=== PATIENT | female | born 2000 | race Caucasian/White ===

== ENCOUNTER 2019-12-03 17:40 | Day surgery (SDC) | payer BC, OTHER ==
[2019-12-03 18:14] VITALS: BMI 29.6
[2019-12-03] MEDS ORDERED: hydrALAZINE 20 MG/ML VIAL SLOW IVP PRN (19:22)
--- NOTE | 2019-12-03 21:45 | PRG ---
DATE OF SERVICE: 12/03/2019 PRIMARY OB: Molly Becerra MD CHIEF COMPLAINT: Rash. HISTORY OF PRESENT ILLNESS: The patient is a 19-year-old G1, P0 female with an intrauterine at 38 weeks and 6 days, presenting to Labor and Delivery with a several-day history of worsening rash that she has tried at home Benadryl, oatmeal bath, [id number] topical steroids without benefit. She reports that the rash is very pruritic. She denies taking hot showers. She denies any contact with any new soaps, detergents, home remedies or prescriptions or new detergents. The patient denies fever, headache, chest pain, shortness of breath, nausea, vomiting, diarrhea, constipation, hip problems, knee problems, or muscle weakness. She denies vaginal bleeding, leakage of fluid, urinary urgency or frequency. PAST MEDICAL HISTORY: Thyroid disorder. MEDICATIONS: vitamins. ALLERGIES: AMOXICILLIN AND CODEINE. PAST SURGICAL HISTORY: Tonsillectomy. SOCIAL HISTORY: Denies drug, alcohol, or tobacco use. OB LABS: Unavailable at the time of dictation. REVIEW OF SYSTEMS: Per HPI. PHYSICAL EXAMINATION: VITAL SIGNS: Blood pressure 124/72, heart rate of 67, saturating 97% on room air, temperature 97.6. GENERAL: She appears to be in no acute distress. She is alert, oriented, cooperative, and pleasant to interact with. HEAD: Normocephalic, atraumatic. LUNGS: Clear to auscultation bilaterally, HEART: Regular rate and rhythm. ABDOMEN: Gravid, soft, nontender. She has a very erythematous striae with what appears to be some papular lesions within the striae. No evidence of vesicular lesions or ulcerative lesions or crusty lesions. This rash is umbilical sparing. She has it less distinct on her. She has papular lesions also on her legs and her thighs and her forearms with white halos around them. heart tracing shows the fetus with a baseline in the 140s with moderate long-term variability, positive 15 x 15 accelerations. Tocometer shows some irritability. ASSESSMENT AND PLAN: The patient is a 19-year-old G1, P0 female with an intrauterine at 38 weeks and 6 days, presenting with new onset of pruritic rash consistent on physical exam with PEP. She has been counseled to take cool showers or baths, to avoid hot water or warm water, to continue with oatmeal baths, and to use Dr. Martell's pine tar soap. We have also given her prescription of betamethasone ointment to place on the affected areas once or twice a day. The patient has been counseled to taper off the use of the topical steroid mainly to help avoid any rebound pruritus. The patient has an appointment tomorrow to see her primary OB, Dr. Becerra, which we have encouraged that she keep. Fetus has a category 1 tracing and reactive NST. The patient is being discharged home. Job ID: [id number]
== END 2019-12-03 19:53 | disposition home or self-care (01) ==
LOC: L&D/OP 17:40
PROVIDERS: ATTEND Obstetrics & Gynecology
DX: O26.893 Other specified pregnancy related conditions, third trimester (principal); L29.9 Pruritus, unspecified; Z88.0 Allergy status to penicillin; Z88.1 Allergy status to other antibiotic agents; Z88.5 Allergy status to narcotic agent

== ENCOUNTER 2019-12-04 12:49 | Outpatient (CLI) | payer OTHER ==
[2019-12-05 11:58] LABS: SARS-CoV-2 MS2 Positive; SARS-CoV-2 N Gene Negative; SARS-CoV-2 S Gene Negative; SARS-CoV-2 by NAA Not Detected (NotDetected); SARS-CoV-2 orf1ab Negative
== END 2019-12-04 12:50 | disposition home or self-care (01) ==
LOC: LABSCS 12:49
PROVIDERS: ATTEND Obstetrics & Gynecology
DX: Z20.828 Contact with and (suspected) exposure to other viral communicable diseases (principal)
CPT/HCPCS: 87635; U0003

== ENCOUNTER 2019-12-05 14:42 | Inpatient (IN) | payer BC, OTHER ==
[2019-12-05] MEDS ORDERED: EPHEDRINE 25 MG/5 ML SYRINGE ONE (16:07)
[2019-12-05] MEDS ORDERED: Bupivacaine/Epinephrine 0.25% 30 ML VIAL ONE (16:07)
[2019-12-05 20:46] VITALS: BMI 29.9
[2019-12-05] MEDS ORDERED: HYDROcodone/Acetaminophen 5/325 mg Tablet PO PRN (20:48)
[2019-12-05] MEDS ORDERED: Ibuprofen 800 MG TAB PO SCH (20:48)
[2019-12-05] MEDS ORDERED: Zolpidem Tartrate 5 MG TAB PO PRN (20:48)
[2019-12-05] MEDS ORDERED: Ondansetron PF 4 MG/2 ML Vial IVP PRN (20:48)
[2019-12-05] MEDS ORDERED: NS / Oxytocin 40 units/1000ml 1,000 ML IV PRN (20:48)
[2019-12-05] MEDS ORDERED: Acetaminophen 500 MG TAB PO PRN (20:48)
[2019-12-05] MEDS ORDERED: Promethazine HCl 25 MG/ML VIAL IM PRN (20:48)
[2019-12-05] MEDS ORDERED: Diphenoxylate HCl/Atropine Tablet PO PRN ×2 (20:48)
[2019-12-05] MEDS ORDERED: NS w/ Oxytocin 10 units 500 ML IV SCH (20:48)
[2019-12-05] MEDS ORDERED: Carboprost 250 MCG/ML AMP IM PRN (20:48)
[2019-12-05] MEDS ORDERED: hydrALAZINE 20 MG/ML VIAL SLOW IVP PRN (20:48)
[2019-12-05] MEDS ORDERED: Misoprostol 200 MCG TAB PR PRN (20:48)
[2019-12-05] MEDS ORDERED: Lidocaine 1% (PF) 30 ML VIAL SC PRN (20:48)
[2019-12-05] MEDS ORDERED: Butorphanol Tartrate 1 MG/ML VIAL SLOW IVP PRN (20:48)
[2019-12-05 21:35] LABS: Hemoglobin 10.7 g/dL (12.0-16.0); Mean Corpuscular HGB CONC 33.6 g/dL (32.0-36.0); Mean Corpuscular Hemoglobin 28.4 pg (25.0-35.0); Mean Corpuscular Volume 84.6 fL (78.0-98.0); Mean Platelet Volume 9.6 fL (7.4-10.4); Platelet Count 321 thou/uL (130-400); RBC Distribution Width 14.1 % (11.5-14.5); Red Blood Cell (RBC) Count 3.76 mill/uL (4.00-5.20); White Blood Cell (WBC) Count 11.3 thou/uL (4.8-10.8)
[2019-12-05] MEDS ORDERED: Ibuprofen 800 MG TAB PO PRN (21:37)
[2019-12-05] MEDS: Misoprostol 100 MCG TAB VAG SCH (22:06)
[2019-12-05 22:15] LABS: Syphilis Antibody Nonreactive (Nonreactive); Syphilis Antibody Index 0.05 S/CO (<1.00 Non-Reactive)
[2019-12-05] MEDS ORDERED: diphenhydrAMINE 25 MG CAP PO PRN (22:39)
[2019-12-05 23:28] LABS: HBSAg Index 0.15 S/CO (0-0.99); Hep B Surf Ag Non-Reactive S/CO (NonReactive)
[2019-12-06] MEDS: Lactated Ringer's 1,000 ML IV SCH ×2 (01:06→06:46)
[2019-12-06] MEDS ORDERED: Fentanyl 4 mcg/Bup 0.1% Cadd 100 ML ONE (05:32)
[2019-12-06] MEDS ORDERED: diphenhydrAMINE 50 MG/ML VIAL IVP PRN (06:24)
[2019-12-06] MEDS ORDERED: Acetaminophen 325 MG TAB PO PRN (06:24)
[2019-12-06] MEDS ORDERED: Ondansetron PF 4 MG/2 ML Vial IVP PRN (06:24)
[2019-12-06] MEDS ORDERED: Promethazine HCl 25 MG/ML VIAL IM PRN (06:24)
[2019-12-06] MEDS ORDERED: Naloxone HCl 0.4 mg/ml Vial IVP PRN ×2 (06:24)
[2019-12-06] MEDS ORDERED: Lactated Ringer's 500 ML IV PRN (06:24)
[2019-12-06] MEDS ORDERED: EPHEDRINE 25 MG/5 ML SYRINGE SLOW IVP PRN (06:24)
[2019-12-06] MEDS ORDERED: Communication Order-Pharmacy FS SCH (06:30)
[2019-12-06] MEDS ORDERED: Fentanyl 4 mcg/Bupivacaine 0.1% Cassette 100 ML EPIDURAL SCH (06:30)
--- NOTE | 2019-12-06 10:16 | PDOC.OPDEL ---
OB Operative/Delivery Note Delivery Dr/Surgeon: Mariam Pre-Delivery Diagnosis: medically indicated induction Procedure/Post Delivery Dx: operative vaginal delivery (non reassurring heart rate tracing) Weeks gestation: 39 Anesthesia: epidural - Additional Findings/Plan Placenta delivered: spontaneous Repaired Obstetrical Laceration: 2nd degree Estimated blood loss: 200ml
[2019-12-06] MEDS ORDERED: Bisacodyl 10 MG SUPP PR PRN (10:17)
[2019-12-06] MEDS ORDERED: hydrALAZINE 20 MG/ML VIAL SLOW IVP PRN (10:17)
[2019-12-06] MEDS ORDERED: Benzocaine-Menthol 82.5 ML CAN TOP PRN (10:17)
[2019-12-06] MEDS ORDERED: Lanolin Ointment 7 GM TUBE TOP PRN (10:17)
[2019-12-06] MEDS ORDERED: Milk Of Magnesia 30 ML UDCUP PO PRN (10:17)
[2019-12-06] MEDS ORDERED: traMADol HCl 50 MG TAB PO PRN (10:17)
[2019-12-06] MEDS ORDERED: NS / Oxytocin 40 units/1000ml 1,000 ML IV SCH (10:30)
[2019-12-06] MEDS: Misoprostol 100 MCG TAB VAG SCH ×2 (10:35→10:36)
[2019-12-06 10:48] LABS: Actual Bicarbonate (HCO3a) 19.6 mEq/L (22-28); Actual Bicarbonate (HCO3v) 20 mEq/L (22-28); Base Excess -6.6 mEq/L (-2.0 to +3.0); Base Excess (BEa) -7.8 mEq/L (-2.0 to +3.0); pH (Cord, venous) 7.28 (7.32-7.43)
[2019-12-06] MEDS: Ibuprofen 800 MG TAB PO SCH ×2 (11:48→21:41)
[2019-12-06] MEDS: Ferrous Sulfate 325 MG TAB PO SCH (17:23)
[2019-12-06] MEDS: Docusate Calcium (SURFAK) 240 MG CAP PO SCH (21:41)
[2019-12-07] MEDS: Ibuprofen 800 MG TAB PO SCH ×2 (05:39→14:19)
[2019-12-07] MEDS: Ferrous Sulfate 325 MG TAB PO SCH (08:09)
[2019-12-07 08:10] VITALS: BP 135/80; TEMP 98.8
[2019-12-07] MEDS ORDERED: Prenatal Vitamin 1 TAB PO SCH (09:00)
[2019-12-07] MEDS: Docusate Calcium (SURFAK) 240 MG CAP PO SCH (09:12)
[2019-12-07] MEDS ORDERED: Adacel (T-DAP) 0.5 ML SYRINGE IM ONE (10:17)
--- NOTE | 2019-12-07 12:51 | PDOC.PP ---
Post Progress Note Post Day #: 1 PO intake tolerated: yes Flatus: yes Ambulation: yes Vital Signs (12 hours) Temp Pulse Resp BP Pulse Ox 12/07/19 08:00 98.8 F 67 16 135/80 98 12/07/19 04:20 98.3 F 71 18 101/65 Weight Weight 180 lb - Physical Examination Abdominal: lochia, no distention, appropriately TTP Extremities: negative homans (B) Result Diagrams: 12/05/19 21:12 Additional Labs: Post Labs Hep Bs Antigen Non-Reactive S/CO (NonReactive) 12/05/19 21:12 Blood Type A POSITIVE 12/06/19 00:32 - Assessment/Plan POST Say 1..Doing well. Routine care. Discharge in AM. F/u 6 weeks.
== END 2019-12-07 18:25 | disposition home or self-care (01) | DRG 807 ==
LOC: L&D 20:09 → 3SW 12-06 16:43 → EDSTATUS 12-11 11:27
PROVIDERS: ADMIT Obstetrics & Gynecology; ATTEND Obstetrics & Gynecology
PROC: 10E0XZZ Delivery of Products of Conception, External Approach (ICD-10-PCS; principal; 2019-12-06)
PROC: 0KQM0ZZ Repair Perineum Muscle, Open Approach (ICD-10-PCS; 2019-12-06)
DX: O76 Abnormality in fetal heart rate and rhythm complicating labor and delivery (principal); Z37.0 Single live birth; Z3A.39 39 weeks gestation of pregnancy; O70.1 Second degree perineal laceration during delivery
CPT/HCPCS: 36415; 82805; 85027; 86780; 86850; 86900; 86901; 87340; 87635; 99282; Q0163; U0003